=== PATIENT | male | born 1955 | race African-American/Black ===

== ENCOUNTER 2016-10-18 16:13 | Emergency (ER) | payer OTHER ==
[~2016-10-18] VITALS: Ht 170.2 cm; Wt 80.0 kg
[~2016-10-18 16:13] MED LIST: ALBU8.5H3 INH; CETI10CA PO; FLUT9.9S NASAL; GUAI118L94 PO; HUM100VI8 SQ; LISI-325 PO; METF500T4 PO; SIMV20TA PO
[2016-10-18 16:18] VITALS: Ht 170.2 cm; Wt 80.0 kg
--- NOTE | 2016-10-18 16:34 | ERD ---
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 He has no significant shortness of breath. He does have a history of diabetes. Denies any dysuria denies chest pain. ROS All systems reviewed and are negative except as per history of present illness. Medications Home Meds Active Scripts Albuterol Sulfate* (Ventolin HFA*) 18 Gm Hfa.aer.ad, 2 PUFF INHALATION Q4H, #1 INHALER Prov:HAILY ROMO DO 10/18/16 Levofloxacin* (Levaquin*) 500 Mg Tablet, 500 MG PO DAILY for 7 Days, TAB Prov:HAILY ROMO DO 10/18/16 Cetirizine Hcl* (Zyrtec*) 10 Mg Capsule, 10 MG PO DAILY, #30 TAB Prov:NATHANIEL ZHOU NP 08/02/15 Fluticasone Propionate (Flonase Allergy Relief) 9.9 Ml [place].susp, 1 SPRAY NASAL BID, #1 BOTTLE TO EACH NOSTRIL Prov:NATHANIEL ZHOU NP 08/02/15 Guaifenesin-Codeine Phosphate* (Guaifenesin* with Codeine Liq) 120 Ml Liquid, 5 ML PO Q4H for COUGH, #60 ML Prov:NATHANIEL ZHOU NP 08/02/15 Albuterol Sulfate* (Proair HFA*) 8.5 Gm Hfa.aer.ad, 2 PUFF INH Q4H Y for WHEEZING AND SOB, #1 INHALER Prov:NATHANIEL ZHOU CARDIOPULMONARY SPECIALIST 08/02/15 Reported Medications Hum Insulin Nph/Reg Insulin Hm (Humulin 70-30 Vial) 100 Units/Ml Vial, 30 UNIT SQ DAILY, VIAL 05/15/14 Lisinopril-Hydrochlorothiazide (Lisinopril-HCTZ) 10-12.5 Mg Tab, 1 TAB PO DAILY , TAB 05/15/14 Simvastatin* (Zocor*) 20 Mg Tablet, 20 MG PO HS, TAB 05/15/14 Metformin Hcl* (Metformin Hcl*) 500 Mg Tablet, 250 MG PO BID, TAB 12/29/14 Allergies Allergies: Coded Allergies: No Known Drug Allergies (Verified Allergy, Mild, 05/15/14) PMhx/Soc History of Surgery: Yes (1982 SUSPECTED BREAST CA BUT IT WAS MUSCLE BUILD UP) Anesthesia Reaction: No Hx Neurological Disorder: No Hx Respiratory Disorders: No Hx Cardiac Disorders: Yes (htn, iddm) Hx Psychiatric Problems: No Hx Miscellaneous Medical Probl: Yes (DIABETIC ULCER) Hx Alcohol Use: Yes (occassional) Hx Substance Use: No Hx Tobacco Use: No Physical Exam Vitals Vital Signs Date Time Temp Pulse Resp B/P Pulse Ox O2 Delivery O2 Flow Rate FiO2 10/18/16 16:18 101.3 120 20 167/88 99 Physical Exam Const: [] No distress ENT: Normal External Ears, Nose and Mouth. Neck: Full range of motion..~ No meningismus. Resp: Clear to auscultation bilaterally Cardio: Regular rate and rhythm, no murmurs Result Diagram: 10/18/16 1700 10/18/16 1700 Results 24 hrs Laboratory Tests Test 10/18/16 17:00 White Blood Count 7.010^3/ul Red Blood Count 4.8810^6/ul Hemoglobin 13.4g/dl Hematocrit 39.5% Mean Corpuscular Volume 80.9fl Mean Corpuscular Hemoglobin 27.5pg Mean Corpuscular Hemoglobin Concent 33.9g/dl Red Cell Distribution Width 13.5% Platelet Count 87827^3/UL Mean Platelet Volume 10.1fl Neutrophils % 62.3% Lymphocytes % 21.5% Monocytes % 11.7% Eosinophils % 3.6% Basophils % 0.6% Nucleated Red Blood Cells % 0.0/100WBC Neutrophils # 4.410^3/ul Lymphocytes # 1.510^3/ul Monocytes # 0.810^3/ul Eosinophils # 0.310^3/ul Basophils # 0.010^3/ul Nucleated Red Blood Cells # 0.010^3/ul Sodium Level 140mmol/L Potassium Level 4.2mmol/L Chloride Level 105mmol/L Carbon Dioxide Level 24mmol/L Anion Gap 15 Blood Urea Nitrogen 11mg/dl Creatinine 0.92mg/dl Glucose Level 232mg/dl Lactic Acid Level 1.8mmol/L Calcium Level 9.9mg/dl Total Bilirubin 0.2mg/dl Direct Bilirubin 0.00mg/dl Indirect Bilirubin 0.2mg/dl Aspartate Amino Transf (AST/SGOT) 26IU/L Alanine Aminotransferase (ALT/SGPT) 36IU/L Alkaline Phosphatase 72IU/L Total Protein 8.0g/dl Albumin 5.0g/dl Globulin 3.00g/dl Albumin/Globulin Ratio 1.66 Procedures/MDM 61-year-old diabetic male with acute bronchitis. No obvious pneumonia on chest x-ray. Does have mild reticulocyte hyperglycemia and is going to take his medications when he gets home. No elevated white count or signs of sepsis. Patient does not want to be admitted to the hospital I believe outpatient treatment is appropriate. Going to discharge him with Levaquin as well as an area albuterol inhaler if he develops shortness of breath Chest x-ray interpretation: See no acute process, no widened mediastinum, no ammonia, no pneumothorax, no fractures Departure Diagnosis: Primary Impression: Acute bronchitis Additional Impressions: Hyperglycemia due to type 2 diabetes mellitus Fever Condition: Stable HAILY ROMO DO Oct 18, 2016 16:34
[2016-10-18 17:04] LABS: ADD SCAN DIFF NO
[2016-10-18 17:07] LABS: BASOPHILS % 0.6 % (0.0-2.0); EOSINOPHILS # 0.3 10^3/ul (0.0-0.5); EOSINOPHILS % 3.6 % (0.0-7.0); HEMATOCRIT 39.5 % (42.0-52.0); HEMOGLOBIN 13.4 g/dl (14.0-18.0); LYMPHOCYTES # 1.5 10^3/ul (0.8-2.9); LYMPHOCYTES % 21.5 % (15.0-51.0); MEAN CORPUSCULAR HEMOGLOBIN 27.5 pg (29.0-33.0); MEAN CORPUSCULAR HGB CONC 33.9 g/dl (32.0-37.0); MEAN CORPUSCULAR VOLUME 80.9 fl (82.0-101.0); MEAN PLATELET VOLUME 10.1 fl (7.4-10.4); MONOCYTE # 0.8 10^3/ul (0.3-0.9); MONOCYTES % 11.7 % (0.0-11.0); NEUTROPHIL # 4.4 10^3/ul (1.6-7.5); NEUTROPHILS % 62.3 % (39.0-77.0); PLATELET COUNT 203 10^3/UL (140-415); RED BLOOD COUNT 4.88 10^6/ul (4.70-6.10); RED CELL DISTRIBUTION WIDTH 13.5 % (11.5-14.5)
[2016-10-18 17:30] LABS: ALBUMIN/GLOBULIN RATIO 1.66; BILIRUBIN,INDIRECT 0.2 mg/dl (0-1.1); BILIRUBIN,TOTAL 0.2 mg/dl (0.2-1.3); CALCIUM 9.9 mg/dl (8.4-10.2); CREATININE 0.92 mg/dl (0.61-1.24); POTASSIUM 4.2 mmol/L (3.5-5.1)
[2016-10-18] MEDS ORDERED: ALBU18HF INHALATION (17:56)
[2016-10-18] MEDS ORDERED: LEVO500T72 PO (17:56)
[2016-10-18 18:02] VITALS: BP 125/74; PULSE 98; RESP 19; TEMP 99.4
--- NOTE | 2016-10-18 18:17 | RADRPT ---
PROCEDURE: XR Chest. CLINICAL INDICATION: Sepsis TECHNIQUE: Anterior chest x-ray. COMPARISON: None. FINDINGS: Elevation left hemidiaphragm is unchanged from previous exam. The lungs are otherwise clear. No pleural effusion identified. There is no evidence of pneumothorax. The cardiomediastinal silhouette is unremarkable. The soft tissues are normal. Osseous structures are unremarkable. IMPRESSION: 1. No acute disease is seen in the chest. 2. Elevation of left hemidiaphragm, unchanged. RPTAT: QQ .Niall Zeng MD, MD Date Time Electronically viewed and signed by .Niall Zeng MD, on 10/18/2016 18:16 .M/
== END 2016-10-18 18:13 | disposition home or self-care (01) ==
LOC: E/R 16:13
DX: J20.9 Acute bronchitis, unspecified (principal); E11.65 Type 2 diabetes mellitus with hyperglycemia; I10 Essential (primary) hypertension; Z79.84 Long term (current) use of oral hypoglycemic drugs; Z79.4 Long term (current) use of insulin
CPT/HCPCS: 36415; 71010; 80053; 83605; 85025; Z7502

== ENCOUNTER 2017-10-27 12:59 | Emergency (ER) | END 2017-10-27 16:33 | disposition home or self-care (01) ==

== ENCOUNTER 2018-09-11 18:15 | Emergency (ER) | payer OTHER ==
[~2018-09-11] VITALS: Ht 170.2 cm; Wt 70.0 kg
[~2018-09-11 18:15] MED LIST changes: -ALBU8.5H3 INH; +ALBU8.5H8 INH; +CEPH-443 PO; -GUAI118L94 PO; +METF500T24 PO; -METF500T4 PO; +SULF1TAB31 PO
[2018-09-11 18:19] VITALS: BP 163/77; PULSE 75; RESP 16; Ht 170.2 cm; Wt 70.0 kg
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
== END 2018-09-11 18:35 | disposition home or self-care (01) ==
LOC: E/R 18:15
DX: Z77.21 Contact with and (suspected) exposure to potentially hazardous body fluids (principal); E11.9 Type 2 diabetes mellitus without complications; I10 Essential (primary) hypertension; Z79.4 Long term (current) use of insulin
CPT/HCPCS: 80076; 85025; 86703; 86706; 86803; 87340; 99283

== ENCOUNTER → 2018-11-27 | Emergency (ER) | payer OTHER ==
[~2018-11-27] VITALS: Ht 180.3 cm; Wt 81.0 kg
[2018-11-27 14:43] VITALS: BP 149/83; PULSE 82; RESP 18; Ht 180.3 cm; Wt 81.0 kg
--- NOTE | 2018-11-27 17:22 | ERD ---
ER Documentation Chief Complaint Chief Complaint right leg numbness on and off started 1 hour ago neuro intact ROS All systems reviewed and are negative except as per history of present illness. Medications Home Meds Active Scripts Cephalexin* (Keflex*) 500 Mg Capsule, 500 MG PO QID for 10 Days, CAP Prov:HAILY ROMO DO 10/27/17 Sulfamethoxazole/Trimethoprim* (Bactrim Ds* Tablet) 1 Each Tablet, 1 TAB PO BID, #20 TAB Prov:HAILY ROMO DO 10/27/17 Cetirizine Hcl* (Zyrtec*) 10 Mg Capsule, 10 MG PO DAILY, #30 TAB Prov:NATHANIEL ZHOU NP 08/02/15 Fluticasone Propionate (Flonase Allergy Relief) 9.9 Ml [place].susp, 1 SPRAY NASAL BID, #1 BOTTLE TO EACH NOSTRIL Prov:NATHANIEL ZHOU NP 08/02/15 Albuterol Sulfate* (Proair HFA*) 8.5 Gm Hfa.aer.ad, 2 PUFF INH Q4H PRN for WHEEZING AND SOB, #1 INHALER Prov:NATHANIEL ZHOU NP 08/02/15 Reported Medications Hum Insulin Nph/Reg Insulin Hm (Humulin 70-30 Vial) 100 Units/Ml Vial, 30 UNIT SQ DAILY, VIAL 05/15/14 Lisinopril-Hydrochlorothiazide (Lisinopril-HCTZ) 10-12.5 Mg Tab, 1 TAB PO DAILY, TAB 05/15/14 Simvastatin* (Zocor*) 20 Mg Tablet, 20 MG PO HS, TAB 05/15/14 Metformin Hcl* (Metformin Hcl*) 500 Mg Tablet, 250 MG PO BID, TAB 05/15/14 Allergies Allergies: Coded Allergies: No Known Drug Allergies (Verified Allergy, Mild, 10/27/17) PMhx/Soc History of Surgery: Yes (1982 SUSPECTED BREAST CA BUT IT WAS MUSCLE BUILD UP) Anesthesia Reaction: No Hx Neurological Disorder: No Hx Respiratory Disorders: No Hx Cardiac Disorders: Yes (htn, iddm) Hx Psychiatric Problems: No Hx Miscellaneous Medical Probl: Yes (DIABETIC ULCER) Hx Alcohol Use: Yes (occassional) Hx Substance Use: No Hx Tobacco Use: No Smoking Status: Never smoker Physical Exam Vitals Vital Signs Date Temp Pulse Resp B/P (MAP) Pulse Ox O2 O2 Flow FiO2 Time Delivery Rate 11/27/18 97.8 82 18 149/83 99 14:43 (105) Physical Exam Const: No acute distress Head: Atraumatic Eyes: Normal Conjunctiva ENT: Normal External Ears, Nose and Mouth. Neck: Full range of motion. No meningismus. Resp: Clear to auscultation bilaterally Cardio: Regular rate and rhythm, no murmurs Abd: Soft, non tender, non distended. Normal bowel sounds Skin: No petechiae or rashes Back: No midline or flank tenderness Ext: No cyanosis, or edema Neur: Awake and alert Psych: Normal Mood and Affect GERALDINE CHASE MD Nov 27, 2018 17:22
== END | disposition home or self-care (01) ==
LOC: E/R 14:31
DX: R20.0 Anesthesia of skin (principal); I10 Essential (primary) hypertension; E10.9 Type 1 diabetes mellitus without complications; Z79.84 Long term (current) use of oral hypoglycemic drugs
CPT/HCPCS: 99282